=== PATIENT | male | born 1940 | race Caucasian/White ===

== ENCOUNTER 2020-05-09 09:29 | Outpatient (CLI) | payer MEDICARE, SELFPAY ==
--- NOTE | 2020-05-09 11:01 | ECG_ITS ---
[facility] Test Date: 2020-05-09 Pat Name: Alfred Puga Department: Room: Gender: Male [employer] Operator: Keerthi Pierce : 1940 Requested By: Aisha Aggarwal Order Number: [id number] Gan MD: Aisha Aggarwal M.D. Interpretive Statements NAME OF STUDY: EXERCISE SESTAMIBI STRESS TEST INDICATION: Chest Pain Baseline blood pressure of 168/91 mm Hg, heart rate 58 beats per minute. EKG showed normal sinus rhythm, normal axis with normal ST-Ts. The patient exercised for 4 minutes 25 seconds on a standard Roman protocol. Patient attained a maximum heart rate of 128 beats per minute(90 % of the maximum predicted heart rate) with a blood pressure at the peak exercise of 202/100 mm Hg. The EKG at the peak exercise revealed sinus tachycardia with no significant ST-T wave changes. Patient did not have any chest pain or any significant arrhythmis with the exercise During the recovery phase, there were no new changes. Study was terminated due to protocol completion. Blood pressure at the end of the recovery phase was 170/95 mm Hg with a heart rate of 73 beats per minute. CONCLUSION: 1. Normal EKG response to treadmill exercise. 2. No exercise-induced chest pain or cardiac arrhythmia. 3. Fair exercise tolerance for age, attained a maximum of 7 METs. 4. Baseline hypertension with hypertensive response to exercise. 5. Perfusion scan will be documented separately. Electronically Signed On 05-09-2020 17:03:32 CDT by Aisha Aggarwal M.D. [id number]
--- NOTE | 2020-05-09 11:06 | NMCV_ITS ---
NM iwona perf SPECT r/s* [id number] Alfred Puga Age: 79 Gender: M : 1940 Exam Date: 05/09/2020 10:52 Ordering Phys: Aisha Aggarwal MD ([email or web address]) Technologist: ALYCIA Gaviria Exam Location: [facility] Indications: CHEST PAIN STRESS TEST Please see separate stress test report in [facility] for full findings IMAGE PROTOCOL Rest/Stress 1 Exercise Day Radiopharmaceutical Dose (mCi) Administration Site Administered by Rest: Tc-99m 10.9 IV ALYCIA Webb Sestamibi Stress:Tc-99m 32.6 IV ALYCIA Webb Sestamibi Rest: 09-May-2020 60 Discovery 630 Stress: 09-May-2020 30 Discovery 630 Radiopharmaceutical was injected at 85 % maximum heart rate. Images obtained in supine and prone position. SPECT RESULTS Technical Quality: Excellent Raw Data Analysis: Normal Image Corrections: No attenuation or motion correction applied Summed Stress Score: 0 Summed Rest Score: 0 Summed Difference Score: 0 PERFUSION FINDINGS SPECT images demonstrate homogeneous tracer distribution throughout the myocardium. FUNCTIONAL RESULTS (calculated via Gated SPECT) Stress Image LV EF (%): 74 Stress EDV (mL):68 TID: 0.8 Stress ESV (mL):18 FUNCTIONAL FINDINGS: The left ventricle is normal in size. Transient Ischemia Dilatation of 0.8. There is normal left ventricular systolic function. The left ventricular ejection fraction is normal with a value of 74%. There is normal left ventricular wall thickening. Normal end-diastolic and end-systolic volumes. IMPRESSIONS 1. Myocardial perfusion imaging is normal. 2. Overall left ventricular systolic function is normal without regional wall motion abnormalities. 3. The left ventricular ejection fraction is normal with a value of 74%. 4. This study suggests a low likelihood of angiographically significant coronary artery disease. Aisha Aggarwal MD (Electronically Signed) Final Date: 09 May 2020 16:52 S
[2020-05-09 11:10] VITALS: BMI 24.1
[2020-05-09 11:38] VITALS: BP 170/95; PULSE 90
== END 2020-05-09 09:30 | disposition home or self-care (01) ==
LOC: RAD 09:35
PROVIDERS: Visit Provider Internal Medicine Cardiovascular Disease
DX: R07.9 Chest pain, unspecified (principal)
CPT/HCPCS: 78452; 93017; A9500

== ENCOUNTER 2021-07-15 18:45 | Emergency (ER) | payer MEDICARE, SELFPAY ==
--- NOTE | 2021-07-15 18:48 | ECG_ITS ---
[facility] Test Date: 2021-07-15 Pat Name: Alfred Puga Department: Room: Gender: Male Communication Electronic Technician: : 1940 Requested By: Kimmy Soria Order Number: [id number] Reading MD: SUE SALINAS Measurements Intervals [place] Rate: 79 P: 66 SC: 186 QRS: 30 QRSD: 96 T: 53 QT: 371 QTc: 427 Interpretive Statements SINUS RHYTHM LOW QRS VOLTAGE IN EXTREMITY LEADS [QRS DEFLECTION < 0.5 mV IN LIMB LEADS] No previous ECG available for comparison Electronically Signed On 07-16-2021 22:57:31 CDT by SUE SALINAS [id number]
--- NOTE | 2021-07-15 18:48 | XRR_ITS ---
PROCEDURE INFORMATION: Exam: XR Chest Exam date and time: 07/15/2021 6:48 PM Age: 81 years old Clinical indication: Sternal or substernal pain; Patient HX: Cp w/ SOB x 3-4 days TECHNIQUE: Imaging protocol: XR of the chest. Views: 1 view. COMPARISON: CR XR chest 2V* [id number] 04/16/2020 11:55 AM FINDINGS: Lungs: Unremarkable. No consolidation. Pleural spaces: Unremarkable. No pleural effusion. No pneumothorax. Heart/Mediastinum: Unremarkable. No cardiomegaly. Bones/joints: Old right rib fractures. No acute fracture visualized. XR/XR chest 1V portable [id number] IMPRESSION: 1. No acute findings. Radiation Dose CTDIVOL = (mGy): DLP = (mGy-cm)
[2021-07-15 18:57] VITALS: BP 177/101; PULSE 79; RESP 18; TEMP 36.7; O2SAT 98; BMI 24.3
--- NOTE | 2021-07-15 19:04 | W.ED.CHESTPA ---
HPI - Chest Pain General: Chief Complaint: Chest Pain Stated Complaint: Chest Pains Time Seen by Provider: 07/15/21 18:53 Source: patient Mode of arrival: ambulatory Limitations: no limitations History of Present Illness: HPI narrative: 81-year-old male who states he has been having some left-sided chest pain over the last 2 to 3 days. He states its been a sharp pain that actually improved with exertion worse with rest. Said some slight dyspnea. Denies any fever or cough. He has no history of heart disease. Does have a history of high blood pressure. Associated symptoms: Deny abdominal pain, dyspnea, fever(s), nausea or vomiting Review of Systems Const: Denies: fever(s), chills, body aches or change in appetite Eyes: Denies: blurry vision or eye discomfort ENMT: Denies: throat pain or dental pain Card: Reports: chest pain Resp: Denies: dyspnea GI: Denies: abdominal pain, nausea, vomiting or diarrhea : Denies: dysuria Musc: Denies: neck pain or back pain Skin/Breast: Denies: rash Neuro: Denies: headache(s) Psych: Denies: depression [place]/Lymph: Denies: easy bruising All/Imm: Denies: urticaria PFSH ED PFSH: Medical History (Updated 07/15/21 @ 21:54 by Kimmy Soria MD) Hyperlipidemia Hypertension Family History Other CAD (coronary artery disease) Diabetes FH: CABG (coronary artery bypass surgery) Hyperlipidemia Hypertension Social History Smoking and tobacco status: former smoker Quit status (tobacco): has quit using tobacco Alcohol intake: current Alcohol intake frequency: few times a week Physical Exam Const: COMMON NORMALS: no acute distress, patient oriented x3 and healthy appearing HENMT: COMMON NORMALS: normocephalic and atraumatic HEAD & SCALP: normocephalic and atraumatic Eye: COMMON NORMALS: Equal, round and reactive pupils present and EOMs intact bilaterally PUPIL: Yes Equal, round and reactive pupils present Neck/C-Spine: COMMON NORMALS: full ROM and supple Chest: COMMONS NORMALS: normal inspection of the chest and normal palpation of entire chest wall Resp: COMMON NORMALS: normal respiratory effort, No retractions, No use of accessory muscles and clear to auscultation bilaterally AUSCULTATION: clear to auscultation bilaterally Cardio: COMMON NORMALS: regular rate, regular rhythm and No murmurs present (Cardio) RATE: regular rate RHYTHM: regular rhythm GI: COMMON NORMALS: Normal to inspection, nondistended, normoactive bowel sounds present, Soft to palpation, non-tender and no masses PALPATION: Yes Soft to palpation Extremity: COMMON NORMALS: normal to inspection and full ROM Neuro: COMMON NORMALS: patient oriented x3, moves all extremities and no focal motor deficits Psych: COMMON NORMALS: mental status grossly normal, Normal thought process present and cooperative THOUGHT PROCESS: Normal thought process present Skin: COMMON NORMALS: no rashes or lesions noted and no wounds GENERAL SKIN EXAM: no rashes or lesions noted Course Vital Signs: Vital signs: Vital Signs Temperature 98.0 F 07/15/21 18:57 Pulse Rate 69 07/15/21 21:07 Respiratory Rate 16 07/15/21 19:45 Blood Pressure 159/90 07/15/21 21:07 Pulse Oximetry 97 07/15/21 21:07 MDM - Chest Pain MDM Narrative: Medical decision making narrative: Patient presents with chest pains atypical in nature. Had been pulled his bowel back and could be muscular both troponins and x-ray here are negative. He is stable for discharge he is to follow-up with PCP and return if worsening. Lab Data: Labs: Lab Results 07/15/21 07/15/21 07/15/21 19:10 19:10 19:10 WBC 9.0 10^3/uL 10^3/ uL (4.0-10.0) RBC 5.27 10^6/uL 10^6 /uL (4.1-5.3) Hgb 16.4 g/dL g/dL (11.7-16.6) Hct 47.1 % % (42.0-52.0) MCV 89.4 fl fl (80-94) MCH 31.1 pg pg (28.0-34.0) MCHC 34.8 g/dL g/dL (30.0-36.0) RDW 13.1 % % (12.1-15.1) Plt Count 263 10^3/cmm 10^3 /cmm (130-400) MPV 9.8 fL fL (7.4-10.4) Neut % (Auto) 74.4 % % Lymph % (Auto) 15.6 % % [place] % (Auto) 7.9 % % Eos % (Auto) 1.1 % % Baso % (Auto) 0.7 % % Neut # (Auto) 6.67 10^3/uL 10^3 /uL (1.8-7.7) Lymph # (Auto) 1.4 10^3/uL 10^3/ uL (0.8-4.8) [place] # (Auto) 0.7 10^3/uL 10^3/ uL (0.2-0.9) Eos # (Auto) 0.1 10^3/uL 10^3/ uL (0.0-0.8) Baso # (Auto) 0.1 10^3/uL 10^3/ uL (0.0-0.1) Nucleated RBC % (a uto) 0 % % Nucleated RBCs # 0.0 /100WBC /100W BC D-Dimer Sodium 140 mmol/L mmol/L (136-145) Potassium 4.4 mmol/L mmol/L (3.5-5.1) Chloride 103 mmol/L mmol/L (98-107) Carbon Dioxide 23 mmol/L mmol/L (22-29) Anion Gap 18.4 (5-19) BUN 20 mg/dL mg/dL (8-23) Creatinine 0.8 mg/dL mg/dL (0.7-1.2) GFR Calculation Not Reportable Glucose 79 mg/dL mg/dL (65-115) Calculated Osmolal ity 292 mOsm/kg mOsm/ kg (285-295) Calcium 9.4 mg/dL mg/dL (8.5-10.5) Total Bilirubin 0.4 mg/dL mg/dL (0.15-1.2) AST 14 U/L U/L (0-40) ALT 10 U/L U/L (0-41) Alkaline Phosphata se 66 IU/L IU/L (40-130) Troponin T Baselin e 9 ng/L ng/L (0-15) Troponin T 120 Min [place] Troponin T Total Protein 7.5 g/dL g/dL (6.6-8.7) Albumin 4.6 g/dL g/dL (3.5-5.2) Globulin 2.9 g/dL g/dL (1.3-4.6) 07/15/21 07/15/21 19:10 21:05 WBC RBC Hgb Hct MCV MCH MCHC RDW Plt Count MPV Neut % (Auto) Lymph % (Auto) [place] % (Auto) Eos % (Auto) Baso % (Auto) Neut # (Auto) Lymph # (Auto) [place] # (Auto) Eos # (Auto) Baso # (Auto) Nucleated RBC % (a uto) Nucleated RBCs # D-Dimer 0.58 ug/mIFEU ug/ mIFEU (0-0.59) Sodium Potassium Chloride Carbon Dioxide Anion Gap BUN Creatinine GFR Calculation Glucose Calculated Osmolal ity Calcium Total Bilirubin AST ALT Alkaline Phosphata se Troponin T Baselin e Troponin T 120 Min [place] 7.43 ng/L ng/L (0-15) [place] Troponin T -1.57 ABS# L ABS# (0-10) Total Protein Albumin Globulin Imaging Data^: CXR: Attestation: I personally reviewed and interpreted this imaging study as follows: Radiologist's impression: [address] [address] XRay Report Signed Patient: Alfred Puga Unit #: [id number] : 1940 Age/Sex: 81 / M ADM Date: 07/15/21 Loc: ER Room/Bed: Attending Dr: Ordering Provider/Ordering MD: Kimmy Soria MD Date of Service: 07/15/21 Procedure(s): XR chest 1V portable [id number] Accession Number(s): [id number] Report Number: [id number] PROCEDURE INFORMATION: Exam: XR Chest Exam date and time: 07/15/2021 6:48 PM Age: 81 years old Clinical indication: Sternal or substernal pain; Patient HX: Cp w/ SOB x 3-4 days TECHNIQUE: Imaging protocol: XR of the chest. Views: 1 view. COMPARISON: CR XR chest 2V* [id number] 04/16/2020 11:55 AM FINDINGS: Lungs: Unremarkable. No consolidation. Pleural spaces: Unremarkable. No pleural effusion. No pneumothorax. Heart/Mediastinum: Unremarkable. No cardiomegaly. Bones/joints: Old right rib fractures. No acute fracture visualized. XR/XR chest 1V portable [id number] IMPRESSION: 1. No acute findings. Radiation Dose CTDIVOL = (mGy): DLP = (mGy-cm) Dictated By: Jamie Giles Signed By: Jamie Giles Signed Date/Time: 07/15/212025 DD/ 47 EKG Data^: EKG 1: Attestation: I personally reviewed and interpreted this EKG as follows: EKG interpretation date: 07/15/21 EKG interpretation time: 18:52 Interpretation: nsr hr [address] or t wave abnormalities qrs 96 qtc 406 Discharge Plan Discharge Patient Disposition: Home Clinical Impression: Chest pain Condition: Stable Prescriptions: No Action amlodipine 5 mg tablet 5 mg PO DAILY RF: 0 pantoprazole 20 mg tablet,delayed release (DR/EC) 20 mg PO DAILY RF: 0 nitroglycerin 0.4 mg tablet, sublingual 0.4 mg sublingual Q5M PRN (Reason: chest pain) RF: 0 aspirin [Adult Aspirin Regimen] 81 mg tablet,delayed release (DR/EC) 81 mg PO DAILY RF: 0 Discharge Orders: Discharge ED (Routine); Ordered 07/15/21 Ordered By: Kimmy Soria Discharge Diet: Advance as tolerated Discharge Activity: Resume usual activity Patient Instructions: Chest Pain (ED) Coding Level of Care Code ED [employer] Professional for Chg Fwd Exam Comprehensive
[2021-07-15 19:19] LABS: Basophils # 0.1 10^3/uL (0.0-0.1); Basophils % 0.7 %; Eosinophils # 0.1 10^3/uL (0.0-0.8); Eosinophils % 1.1 %; Hematocrit 47.1 % (42.0-52.0); Hemoglobin 16.4 g/dL (11.7-16.6); Lymphocytes # 1.4 10^3/uL (0.8-4.8); Lymphocytes % 15.6 %; Mean Corpuscular HGB Conc 34.8 g/dL (30.0-36.0); Mean Corpuscular Hemoglobin 31.1 pg (28.0-34.0); Mean Corpuscular Volume 89.4 fl (80-94); Mean Platelet Volume 9.8 fL (7.4-10.4); Monocytes # 0.7 10^3/uL (0.2-0.9); Monocytes % 7.9 %; Neutrophils # 6.67 10^3/uL (1.8-7.7); Neutrophils % 74.4 %; Nucleated Red Blood Cells % 0 %; Platelet Count 263 10^3/cmm (130-400); Red Blood Count 5.27 10^6/uL (4.1-5.3); Red Cell Distribution Width 13.1 % (12.1-15.1)
[2021-07-15] MEDS: aspirin 81 mg Chew Tablet 324 MG PO (19:30)
[2021-07-15] MEDS: nitroglycerin 0.4 mg sublingual Tablet SUBLINGUAL ×3 (19:30→19:40)
[2021-07-15 19:39] LABS: D Dimer 0.58 ug/mIFEU (0-0.59)
[2021-07-15 19:45] VITALS: BP 143/98; PULSE 80; RESP 16; O2SAT 97
[2021-07-15 20:09] LABS: Alanine Aminotransferase 10 U/L (0-41); Albumin Level 4.6 g/dL (3.5-5.2); Alkaline Phosphatase 66 IU/L (40-130); Anion Gap 18.4 (5-19); Aspartate Amino Transferase 14 U/L (0-40); Blood Urea Nitrogen 20 mg/dL (8-23); Calcium 9.4 mg/dL (8.5-10.5); Carbon Dioxide 23 mmol/L (22-29); Chloride 103 mmol/L (98-107); Globulin 2.9 g/dL (1.3-4.6); Glucose 79 mg/dL (65-115); Osmolality Calculated 292 mOsm/kg (285-295); Potassium 4.4 mmol/L (3.5-5.1); Sodium 140 mmol/L (136-145); Total Bilirubin 0.4 mg/dL (0.15-1.2); Total Protein 7.5 g/dL (6.6-8.7)
[2021-07-15 20:10] LABS: Troponin(5th) Baseline 9 ng/L (0-15)
[2021-07-15 21:07] VITALS: BP 159/90; PULSE 69; O2SAT 97
[2021-07-15 21:44] LABS: Troponin 5 2HR 7.43 ng/L (0-15)
[2021-07-15 21:45] LABS: Troponin 5 2HR Delta -1.57 ABS# (0-10)
[2021-07-15 22:37] VITALS: BP 154/85; PULSE 71; RESP 18; O2SAT 96
== END 2021-07-15 22:39 | disposition home or self-care (01) ==
PROVIDERS: Emergency Provider Emergency Medicine
DX: R07.9 Chest pain, unspecified (principal); Z79.82 Long term (current) use of aspirin; E78.5 Hyperlipidemia, unspecified; I10 Essential (primary) hypertension; Z87.891 Personal history of nicotine dependence
CPT/HCPCS: 71045; 80053; 84484; 85025; 85378; 93005; 99284

== ENCOUNTER → 2024-05-31 14:38 | Outpatient (BNVA) | payer MEDICARE, SELFPAY | PROVIDERS: PCP Nurse Practitioner Family; Referring Provider Nurse Practitioner Family; Visit Provider Dermatology | DX: D48.5 Neoplasm of uncertain behavior of skin (principal); L57.0 Actinic keratosis; S60.012A Contusion of left thumb without damage to nail, initial encounter; X58.XXXA Exposure to other specified factors, initial encounter; L57.8 Other skin changes due to chronic exposure to nonionizing radiation; L82.1 Other seborrheic keratosis; D18.01 Hemangioma of skin and subcutaneous tissue | CPT/HCPCS: 11102; 17000; 69100; 99203 ==

== ENCOUNTER → 2024-06-20 07:48 | Outpatient (BNVA) | payer MEDICARE, SELFPAY | PROVIDERS: PCP Nurse Practitioner Family; Visit Provider Dermatology | DX: C44.229 Squamous cell carcinoma of skin of left ear and external auricular canal (principal); D03.59 Melanoma in situ of other part of trunk; C44.519 Basal cell carcinoma of skin of other part of trunk | CPT/HCPCS: 13152; 17311; 99213 ==

== ENCOUNTER → 2024-06-29 12:41 | Outpatient (BNVA) | payer MEDICARE, SELFPAY | PROVIDERS: PCP Nurse Practitioner Family; Visit Provider Dermatology | DX: M70.22 Olecranon bursitis, left elbow (principal); D03.59 Melanoma in situ of other part of trunk; C44.519 Basal cell carcinoma of skin of other part of trunk | CPT/HCPCS: 10160; 99214 ==